=== PATIENT | female | born 1965 | race Caucasian/White ===

== ENCOUNTER 2018-09-28 22:23 | Inpatient (IN) ==
--- NOTE | 2018-09-28 06:58 | General Surg History&Physical ---
Date of Encounter: 09/28/18 Time of Encounter: 06:45 Assessment and Plan (1) Acute appendicitis Current Visit: No Status: Acute The assessment and plan as outlined above was discussed with the patient and/or family members who expressed understanding and agreement. All questions were answered. The patient is transferred from outside emergency room with the diagnosis of acute appendicitis. I personally reviewed the CAT scan films and examined the patient. Her history and physical as well as CAT scan images are consistent with acute appendicitis. We will plan laparoscopic appendectomy. I discussed risks and benefits with her she understands and wishes to proceed. Qualifiers: Acute appendicitis type: with localized peritonitis Appendicitis gangrene presence: unspecified whether gangrene present Appendicitis perforation presence: unspecified whether perforation present Appendicitis abscess presence: without abscess Qualified Code(s): K35.30 - Acute appendicitis with localized peritonitis, without perforation or gangrene History of Present Illness Chief complaint: Abdominal pain HPI: Ms. Balderas is a 53 year old female Who has been ill since Saturday. She developed nausea and vomiting and centralized abdominal pain. This slowly localized to the right lower quadrant. She now has continuous pain in the right lower quadrant as well as pain with motion. She sought evaluation in the emergency department and a CAT scan demonstrated acute appendicitis. She is transferred to [facility] and treated with intravenous antibiotics. On history today she continues to have right lower quadrant pain and pain with motion. I personally reviewed the CAT scan images. Findings are consistent with acute appendicitis. I have recommended laparoscopic appendectomy. She does have shakes chills and fevers. She denies diarrhea. Past Med Surg Social Fam HX - Past Medical History Medical history: no medical history Psychiatric history: no psych history - Past Surgical History Surgical History: hysterectomy - Social History Smoking Status: Never smoker Smokeless Tobacco Status: No Alcohol use: none Drug use: none Medications and Allergies Phenazopyridine HCl [Pyridium] 200 mg PO TIDAC #6 tab 07/26/16 [Rx] Sulfamethoxazole/Trimeth DS [Bactrim DS] 1 each PO BID #20 tablet 07/26/16 [Rx] methylPREDNISolone [Medrol] 4 mg PO TAPER #21 tablet 07/11/18 [Rx] Allergy/AdvReac Type Severity Reaction Status Date / Time No Known Allergies Allergy Verified 07/26/16 09:32 Review of Systems All systems PM: The remainder of the systems were reviewed and are negative General Surgery Exam Initial Vital Signs Temp Pulse Resp BP Pulse Ox 98.6 F 71 16 131/73 97 09/28/18 00:08 09/28/18 00:08 09/28/18 00:08 09/28/18 00:08 09/28/18 00:08 - General physical appearance moderate pain - Neck no masses, no bruits, trachea midline, no lymphadectomy, no venous distension - Respiratory normal expansion, normal respiratory effort, clear to percussion, clear to auscultation - Cardiovascular Cardiovascular exam: Present: RRR, no murmurs/rubs/gallops - Abdomen Abdomen general surgery: Present: bowel sounds present, guarding, rebound Abdominal Tenderness: Present: RLQ - Neurologic Present: CN 2-12 grossly intact, normal coordination, normal sensation - Psychiatric Psychiatric general surgery: Present: appropriate, oriented to person, oriented to place, oriented to time, speech is normal, memory intact Results - Labs All other labs normal. - Imaging CT scan - abdomen: image reviewed (I personally reviewed the CAT scan images. Findings are consistent with acute appendicitis.)
--- NOTE | 2018-09-28 07:26 | Anesthesia Evaluation PreOp ---
Date of Encounter: 09/28/18 Time of Encounter: 07:30 - Past History Planned Operation: Lap Appendectomy Cardiac History: Denies any Significant Hx Pulmonary History: Denies Any Significant HX LEAD MINER BLASTING History: Denies Any Significant HX Other Medical History: Denies Any Significant HX Anesthesia History: No Prior Anesthetic Complications : No (Hysterectomy) Alcohol Use: none Drug use: none Medications and Allergies Phenazopyridine HCl [Pyridium] 200 mg PO TIDAC #6 tab 07/26/16 [Rx] Sulfamethoxazole/Trimeth DS [Bactrim DS] 1 each PO BID #20 tablet 07/26/16 [Rx] methylPREDNISolone [Medrol] 4 mg PO TAPER #21 tablet 07/11/18 [Rx] Allergy/AdvReac Type Severity Reaction Status Date / Time No Known Allergies Allergy Verified 07/26/16 09:32 - Meds/Allergy Pre-op Review Medications Reviewed: Yes Allergies Reviewed: Yes Beta Blockers on Current Med List: No Anesthesia Results - Labs Laboratory Tests 09/27/18 09/27/18 21:22 21:22 Hgb 13.7 Hct 39.5 Plt Count 137 L Sodium 139 Potassium 4.7 BUN 15 Creatinine 1.00 Anesthesia Exam Vital Signs/O2 Sat/Glucose, Most Current Temp Pulse Resp BP Pulse Ox 09/28/18 03:47 98.6 F 76 17 110/71 98 Height: 5'8 Weight: 147 lbs NPO (# of Hours): MN Pain Scale: 1 - HEENT Pupil (Motor): Pupils equal, EOMI Mallampati: II Teeth: Normal Oral Opening: Greater than 3 - LEAD MINER BLASTING LOC: Oriented LEAD MINER BLASTING Motor: Normal RUE, Normal LUE, Normal RLE, Normal LLE, Normal Face LEAD MINER BLASTING Sensory: Normal: RUE, LUE, RLE, LLE, Face - Cardiac Rhythm: Regular Murmur: None JVD: No Carotid Bruit: No - Pulmonary Breath Sounds: bilateral Clear Respiratory Effort: Symmetrical Anesthesia Assess/Plan ASA Score: 1 Level of consciousness: Cooperative Anesthetic Plan: General Autologous Blood: No Monitoring Plan: Standard Monitors Recovery Plan: PACU (Discussed GA, agrees to proceed)
--- NOTE | 2018-09-28 09:13 | Operative Note ---
Date of procedure: 09/28/18 Pre-op diagnosis: Acute appendicitis Post-op diagnosis: other (#1 acute perforated appendicitis #2 intra-abdominal abscess) Procedure: #1 laparoscopic appendectomy #2 drainage of intra-abdominal abscess Anesthesia: JULIAN Surgeon: Jake Pritchett Was there an assistant portfolio manager present: No Estimated blood loss (cc): 25 Specimen: Appendix Condition: stable Disposition: PACU Procedure in Detail: After informed consent the patients taking major operative suite placed supine position given adequate general endotracheal anesthesia. The abdomen is prepped and draped in sterile fashion utilizing ChloraPrep standard draping techniques. Timeout was taken and the patient is identified. I made a vertical midline incision below the umbilicus and dissected down the level of fascia. 2 traction stitches of 0 Vicryl were placed. The abdomen was entered visually and I placed a [place] trocar placed a 5 mm trocar in the left suprapubic area and a 12 mm trocar in the right upper quadrant. The appendix was in the pelvis. I mobilize the cecum in the appendix out of the pelvis. It was noted there is a great deal of periappendiceal inflammation and mesenteric changes. The mesial appendix was very swollen. As I dissected the window between the mesial appendix and the cecum I entered a large abscess cavity. This was completely drained. The condition of the tissues were very poor. The appendix had perforated in its midportion and was essentially in 2 pieces. I divided the mesial appendix and abscess cavity with a vascular load on the laparoscopic stapler. I divided the base the appendix with the gastrointestinal stapler. As I did this, the appendix broke off the cecum. I was very concerned about staple line I investigated the staple line multiple times and took multiple photographs. There was no evidence of leak the staple line appeared to be intact. Because of the presence of abscess, and quality the tissue the staple line I placed a #10 Praful-Coleman drain at the appendectomy site inside the abscess. This was exited through the left lower quadrant. 2-0 silk suture was used to secure the Praful-Coleman drain in place. I irrigated with copious amounts of antibiotic containing solution. There was no evidence of bleeding or staple line leak. All trochars removed. Fascia was closed with 0 Vicryl. Skin was closed with interrupted Vicryl and skin meenakshi. She tolerated the procedure well.
--- NOTE | 2018-09-28 12:05 | Anesthesia Evaluation Post Op ---
Date of Encounter: 09/28/18 Time of Encounter: 11:00 - Vital Signs Vital Signs: Vital Signs/O2 Sat/Glucose, Most Current Temp Pulse Resp BP Pulse Ox 09/28/18 10:18 98.8 F 78 16 101/64 96 09/28/18 09:54 97.6 F 76 16 95/60 96 09/28/18 09:44 83 14 97/56 96 09/28/18 09:34 80 14 86/53 98 09/28/18 09:24 97.8 F 85 20 87/49 95 - Lungs Lungs: Clear Ascult./Percussion - Airway Airway: Non-obstructed - Cardiovascular Regular Rate - Mental Status Mental Status: Alert & Oriented, Answers Appropriately - Pain Pain Scale: 1 - Nausea Vomiting Nausea Vomiting: Not Present - Hydration Hydration: NPO - Discharge PostOp Status: Transfer Patient to floor
[2018-09-28] MEDS: cefOXitin 2,000 MG in Water for inj. (sterile) 20 ML 20 ML IVPB SCH ×2 (15:31→23:40)
[2018-09-28] MEDS: 0.9 % Sodium Chloride 1,000 ML IVC SCH (19:32)
[~2018-09-28 22:23] MED LIST: *HR* HYDROmorphone (PF) 1 MG/ML SYRINGE IVP PRN; *HR* HYDROmorphone (PF) 1 MG/ML SYRINGE ONE; *HR* Midazolam HCl 2 MG/2 ML VIAL ONE; *HR* Morphine 2 MG/ML SYRINGE IVP PRN; *HR* OxyCODONE Immed Rel 5 MG TABLET PO PRN; *HR* OxyCODONE/APAP 10/325 TABLET PO PRN; *HR* PHENYLEPHRINE 1,000 MCG/10 ML SYRINGE IVP ONE; *HR* Propofol 200 MG/20 ML VIAL IVP ONE; *HR* Rocuronium Bromide 50 MG/5 ML VIAL ONE; *HR* Succinylcholine 200 MG/10 ML VIAL IVP ONE; 0.9 % Sodium Chloride 1,000 ML IVC SCH; Acetaminophen IV 1,000 MG/100 ML INFUS..BTL IVPB ONE; Acetaminophen IV 1,000 MG/100 ML INFUS..BTL ONE; Albuterol 2.5 MG/3 ML NEBULIZER IH ONE; CefOXitin 1,000 MG VIAL ONE; Dexamethasone 4 MG/ML VIAL ONE; Famotidine 20 MG/2 ML VIAL IVP ONE; Famotidine 20 MG/2 ML VIAL ONE; Ketorolac 30 MG/ML VIAL ONE; Lacri-Lube 3.5 GM TUBE ONE; Lidocaine -MPF 2% 2 ML VIAL ONE; Lidocaine -MPF 4% 5 ML AMPUL ONE; Metoclopramide 10 MG/2 ML VIAL ONE; Ondansetron 4 MG/2 ML VIAL IVP ONE; Ondansetron 4 MG/2 ML VIAL IVP PRN; SUGAMMADEX SODIUM 500 MG/5 ML VIAL IV ONE; cefOXitin 1,000 MG, 0.9 % Sodium Chloride 1,000 ML IR ONE; cefOXitin 2,000 MG in Water for inj. (sterile) 20 ML 20 ML IVPB SCH
[2018-09-29] MEDS ORDERED: Acetaminophen IV 1,000 MG/100 ML INFUS..BTL IVPB ONE (07:47)
[2018-09-29] MEDS: cefOXitin 2,000 MG in Water for inj. (sterile) 20 ML 20 ML IVPB SCH ×2 (08:49→15:58)
--- NOTE | 2018-09-29 09:23 | General Surgery Progress Note ---
<JemimaKale S - Last Filed: 09/29/18 09:20> Date of Encounter: 09/29/18 Time of Encounter: 08:15 - Assessment and Plan (1) Acute appendicitis Current Visit: No Status: Acute Patient is POD 1 for laparoscopic appendectomy for a perforated appendicitis with drain placement for intra-abdominal abscess WBC 7.7 Wound drainage - 95 > 20 ml today (sanguineous) IV fluid hydration at 75 mls/hr Zofran for nausea Patient is on cefoxitin (day 2) Ordered IV acetaminophen for pain - patient refusing other pain medications Ambulate out of bed today Advanced to full liquid diet today Pathology results - pending Qualifiers: Acute appendicitis type: with localized peritonitis Appendicitis gangrene presence: unspecified whether gangrene present Appendicitis perforation presence: unspecified whether perforation present Appendicitis abscess presence: without abscess Qualified Code(s): K35.30 - Acute appendicitis with localized peritonitis, without perforation or gangrene Subjective Patient reports: no new complaints, feels better, still having pain, pain is less, tolerating liquids well, flatus, no bowel movement Narrative: Patient doing well this morning. She has some abdominal pain around incisions. She has passed flatus. She denies nausea, vomiting, BMs, CP, fevers/chills, SOB. Objective Vital Signs - Last 8 Hours Temp Pulse Resp BP Pulse Ox 09/29/18 06:10 98.2 F 68 15 116/64 98 09/29/18 03:47 97.9 F 52 14 116/61 99 Intake and Output 09/28/18 09/29/18 09/29/18 23:59 07:59 15:59 Intake Total 120 / 120 260 / 260 140 / 140 Output Total 205 / 205 220 / 220 Balance -85 / -85 40 / 40 140 / 140 Intake: IV Fluids 20 / 20 20 / 20 Mefoxin 2,000 MG In Water for 20 / 20 20 / 20 inj. (sterile) 20 ML @ 300 mls/ hr IVPB Q8HR [facility] Rx#:[id number] Oral 120 / 120 240 / 240 120 / 120 Output: Urine 200 / 200 200 / 200 Wound Drainage 5 / 5 20 / 20 LLQ 5 / 5 20 / 20 Other: Meal CLEARS # Bowel Movements 0 0 Weight 67.1 kg Blood Glucose* 112 Patient Weight 09/29/18 23:59 Weight 67.1 kg - General physical appearance well developed, well nourished - Respiratory normal expansion, normal respiratory effort - Cardiovascular Cardiovascular exam: Present: RRR - Abdomen Abdomen: Present: bowel sounds present, soft, tender (appropriately) Additional Comments: MARYSOL drain with ~50 ml sanguineous liquid in bulb - Incision Incision: Present: clean and dry, intact - Integumentary no rash - Psychiatric oriented to time, oriented to person, oriented to place Consult Discharge Plan - Plan Referrals: NONE,PCP [Primary Care Provider] - <Jake Pritchett - Last Filed: 09/29/18 13:32> Date of Encounter: 09/29/18 - Assessment and Plan (1) Acute appendicitis Current Visit: No Status: Acute Qualifiers: Acute appendicitis type: with localized peritonitis Appendicitis gangrene presence: unspecified whether gangrene present Appendicitis perforation presence: unspecified whether perforation present Appendicitis abscess presence: without abscess Qualified Code(s): K35.30 - Acute appendicitis with localized peritonitis, without perforation or gangrene Objective Vital Signs - Last 8 Hours Temp Pulse Resp BP Pulse Ox 09/29/18 10:00 97.7 F 56 16 102/59 97 09/29/18 06:10 98.2 F 68 15 116/64 98 Intake and Output 09/28/18 09/29/18 09/29/18 23:59 07:59 15:59 Intake Total 120 / 120 260 / 260 480 / 480 Output Total 205 / 205 220 / 220 200 / 200 Balance -85 / -85 40 / 40 280 / 280 Intake: IV Fluids 20 / 20 120 / 120 Ofirmev 1,000 mg/100 ml 1,000 100 / 100 mg In 100 ml @ 400 mls/hr IVPB ONCE ONE Rx#:[id number] Mefoxin 2,000 MG In Water for 20 / 20 20 / 20 inj. (sterile) 20 ML @ 300 mls/ hr IVPB Q8HR [facility] Rx#:[id number] Oral 120 / 120 240 / 240 360 / 360 Output: Urine 200 / 200 200 / 200 200 / 200 Wound Drainage 5 / 5 20 / 20 LLQ 5 / 5 20 / 20 Other: Meal Lunch Percent of Meal Consumed 10% # Bowel Movements 0 0 Weight 67.1 kg Blood Glucose* 112 Patient Weight 09/29/18 23:59 Weight 67.1 kg - Attending Attestation I examined this patient and my medical decision-making was reviewed with the Resident Physician. I agree with the documented findings, disposition and treatment plan as described except to the extent set forth below. The patient is seen and evaluated with rest and on morning rounds. She is doing well postoperative day 1 from laparoscopic appendectomy. She had intra- abdominal abscess. Praful-Coleman drain was placed. This has severe sanguinous drainage. No evidence of pus. Jake Pritchett MD FACS
[2018-09-29] MEDS: 0.9 % Sodium Chloride 1,000 ML IVC SCH ×2 (10:19→10:44)
[2018-09-29] MEDS: *HR* Heparin 5,000 UNIT/ML VIAL SQ SCH (18:25)
[2018-09-29] MEDS ORDERED: Ketorolac 30 MG/ML VIAL IVP PRN (21:34)
[2018-09-30] MEDS ORDERED: Acetaminophen 325 MG TABLET PO ONE (00:30)
[2018-09-30] MEDS: cefOXitin 2,000 MG in Water for inj. (sterile) 20 ML 20 ML IVPB SCH ×3 (00:40→16:48)
[2018-09-30] MEDS ORDERED: Acetaminophen 325 MG TABLET PO PRN (02:07)
[2018-09-30] MEDS: *HR* Heparin 5,000 UNIT/ML VIAL SQ SCH ×2 (05:00→16:49)
[2018-09-30 06:24] LABS: Basophils % 0.2 %; Hematocrit 30.7 % (35.3-44.9); Hemoglobin 10.2 g/dL (11.5-15.4); Immature Granulocytes % 0.5 % (0-4); Lymphocytes % 16.8 %; Mean Corpuscular HGB Conc 33.2 g/dL (31.6-35.5); Mean Corpuscular Hemoglobin 28.9 pg (28.0-33.3); Mean Platelet Volume 10.7 fL (9.4-12.4); Monocytes # 0.5 K/mcL (0.0-1.3); Monocytes % 9.5 %; Neutrophils # 4.2 K/mcL (1.6-8.9); Platelet Count 103 K/mcL (140-400); Red Blood Count 3.53 M/mcL (3.82-4.97); Red Cell Distribution Width 12.2 % (11.5-14.5)
[2018-09-30 06:45] LABS: BUN/Creatinine Ratio 21 (6-26); Blood Urea Nitrogen 17 mg/dL (6-20); Calcium 8.4 mg/dL (8.6-10.3); Carbon Dioxide 22 mEq/L (23-29); Chloride 109 mEq/L (98-107); Glucose 92 mg/dL (70-105); Osmolality,Calculated 291 (280-300); Sodium 140 mEq/L (136-145); eGFR For Non-African Americans > 60 (> 60)
[2018-09-30] MEDS ORDERED: Acetaminophen IV 500 MG/50 ML INFUS..BTL IVPB ONE (07:32)
[2018-09-30] MEDS: 0.9 % Sodium Chloride 1,000 ML IVC SCH ×2 (07:45→11:17)
[2018-09-30] MEDS ORDERED: Acetaminophen IV 1,000 MG/100 ML INFUS..BTL IVPB ONE (09:45)
[2018-09-30] MEDS ORDERED: Ibuprofen 800 MG TABLET PO PRN (09:50)
[2018-09-30] MEDS ORDERED: Ibuprofen 200 MG TABLET PO PRN (10:30)
[2018-09-30] MEDS ORDERED: Ibuprofen 400 MG TABLET PO PRN (17:05)
--- NOTE | 2018-09-30 17:10 | General Surgery Progress Note ---
<CristopherDanelle Nicho - Last Filed: 09/30/18 17:07> Date of Encounter: 09/30/18 Time of Encounter: 17:07 - Assessment and Plan (1) Acute appendicitis Current Visit: Yes Status: Acute POD #2 Lap appy with MARYSOL drain placement and evacuation of abscess. Pt states dicomfort ins improved. she has difficulty taking large pills and requests smaller dosage of ibuprofen more often. Tolerating diet. No BM P{magalie: continue supportive care and discomfort management while awaiting full return about function soft diet ambulate TID G.I. and DVT prophylaxis continue IV antibiotics DC planning in the next 24 to 48 hours pending clinical course Qualifiers: Acute appendicitis type: with localized peritonitis Appendicitis gangrene presence: without gangrene Appendicitis perforation presence: with perforation Appendicitis abscess presence: with abscess Qualified Code(s): K35.33 - Acute appendicitis with perforation and localized peritonitis, with abscess Subjective Patient reports: no new complaints, feels better, tolerating liquids well, voiding w/o difficulty, flatus, no bowel movement, afebrile Objective Vital Signs - Last 8 Hours Temp Pulse Resp BP Pulse Ox 09/30/18 14:47 98.7 F 67 16 104/57 98 09/30/18 09:53 98.0 F 65 15 120/70 98 Intake and Output 09/30/18 09/30/18 09/30/18 07:59 15:59 23:59 Intake Total 20 / 20 360 / 360 Output Total 220 / 220 355 / 355 135 / 135 Balance -200 / -200 5 / 5 -135 / -135 Intake: IV Fluids 20 / 20 120 / 120 Ofirmev 1,000 mg/100 ml 1,000 100 / 100 mg In 100 ml @ 400 mls/hr IVPB ONCE ONE Rx#:[id number] Mefoxin 2,000 MG In Water for 20 / 20 20 / 20 inj. (sterile) 20 ML @ 300 mls/ hr IVPB Q8HR [facility] Rx#:[id number] Oral 240 / 240 Output: Urine 150 / 150 355 / 355 100 / 100 Wound Drainage 70 / 70 0 / 0 35 / 35 LLQ 70 / 70 0 / 0 35 / 35 Other: # Bowel Movements 0 Weight 68.2 kg Patient Weight 09/30/18 23:59 Weight 68.2 kg - General physical appearance no distress, moderate pain - ENT normal nares, normal mucosa - Neck Neck exam: trachea midline - Respiratory normal expansion, normal respiratory effort, clear to auscultation - Cardiovascular Cardiovascular exam: Present: RRR - Abdomen Abdomen: Present: bowel sounds present, soft, tender, wound (MARYSOL with SS drainage) Hernia: none - Integumentary no rash - Neurologic CN 2-12 grossly intact, normal coordination, normal sensation - Musculoskeletal normal gait, normal posture - Psychiatric oriented to time, oriented to person, oriented to place, speech is normal, memory intact - Labs 09/30/18 05:49 09/30/18 05:49 Diabetes panel 09/30/18 Range/Units 05:49 Sodium 140 (136-145) mEq/L Potassium 4.0 (3.5-5.1) mEq/L Chloride 109 H (98-107) mEq/L Carbon Dioxide 22 L (23-29) mEq/L BUN 17 (6-20) mg/dL Creatinine 0.81 (0.60-1.20) mg/dL Glucose 92 (70-105) mg/dL Calcium 8.4 L (8.6-10.3) mg/dL Calcium panel 09/30/18 Range/Units 05:49 Calcium 8.4 L (8.6-10.3) mg/dL Pituitary panel 09/30/18 Range/Units 05:49 Sodium 140 (136-145) mEq/L Potassium 4.0 (3.5-5.1) mEq/L Chloride 109 H (98-107) mEq/L Carbon Dioxide 22 L (23-29) mEq/L BUN 17 (6-20) mg/dL Creatinine 0.81 (0.60-1.20) mg/dL Glucose 92 (70-105) mg/dL Calcium 8.4 L (8.6-10.3) mg/dL Adrenal panel 09/30/18 Range/Units 05:49 Sodium 140 (136-145) mEq/L Potassium 4.0 (3.5-5.1) mEq/L Chloride 109 H (98-107) mEq/L Carbon Dioxide 22 L (23-29) mEq/L BUN 17 (6-20) mg/dL Creatinine 0.81 (0.60-1.20) mg/dL Glucose 92 (70-105) mg/dL Calcium 8.4 L (8.6-10.3) mg/dL Consult Discharge Plan - Plan Referrals: NONE,PCP [Primary Care Provider] - <Jake Pritchett - Last Filed: 10/01/18 17:23> Date of Encounter: 09/30/18 - Assessment and Plan (1) Acute appendicitis Current Visit: Yes Status: Acute Qualifiers: Acute appendicitis type: with localized peritonitis Appendicitis gangrene presence: without gangrene Appendicitis perforation presence: with perforation Appendicitis abscess presence: with abscess Qualified Code(s): K35.33 - Acute appendicitis with perforation and localized peritonitis, with abscess Objective Vital Signs - Last 8 Hours Temp Pulse Resp BP Pulse Ox 10/01/18 15:36 98.7 F 65 16 103/67 97 10/01/18 11:25 98.5 F 72 16 104/68 97 Intake and Output 10/01/18 10/01/18 10/01/18 07:59 15:59 23:59 Intake Total 20 20 20 / 20 Output Total 120 / 120 Balance -100 / -100 20 / 20 Intake: IV Fluids 20 / 20 20 / 20 Mefoxin 2,000 MG In Water for 20 20 20 / 20 inj. (sterile) 20 ML @ 300 mls/ hr IVPB Q8HR [facility] Rx#:[id number] Oral 0 / 0 0 / 0 Output: Urine 100 / 100 Wound Drainage / 20 LLQ 20 / 20 Other: Meal Lunch Percent of Meal Consumed 30% # Bowel Movements 0 Weight 68.9 kg Patient Weight 10/01/18 23:59 Weight 68.9 kg - Labs 10/01/18 06:33 09/30/18 05:49 - Attending Attestation I examined this patient and my medical decision-making was reviewed with the Resident Physician. I agree with the documented findings, disposition and treatment plan as described except to the extent set forth below. The patient is seen and evaluated on morning rounds with resident. She is doing quite well. We will advance her diet. Continue IV antibiotics. Jake Pritchett MD FACS
[2018-10-01] MEDS: cefOXitin 2,000 MG in Water for inj. (sterile) 20 ML 20 ML IVPB SCH ×3 (01:05→18:04)
[2018-10-01] MEDS: *HR* Heparin 5,000 UNIT/ML VIAL SQ SCH ×2 (05:49→18:05)
[2018-10-01 07:08] LABS: Hematocrit 31.6 % (35.3-44.9); Hemoglobin 10.7 g/dL (11.5-15.4); Mean Corpuscular HGB Conc 33.9 g/dL (31.6-35.5); Mean Corpuscular Hemoglobin 28.6 pg (28.0-33.3); Mean Corpuscular Volume 84.5 fL (83.0-100.0); Mean Platelet Volume 10.1 fL (9.4-12.4); Platelet Count 122 K/mcL (140-400); Red Blood Count 3.74 M/mcL (3.82-4.97); Red Cell Distribution Width 11.9 % (11.5-14.5)
[2018-10-01] MEDS: Pantoprazole 40 MG VIAL IVP SCH (09:18)
--- NOTE | 2018-10-01 10:50 | General Surgery Progress Note ---
<Kale Onofre S - Last Filed: 10/01/18 10:48> Date of Encounter: 10/01/18 Time of Encounter: 07:15 - Assessment and Plan (1) Acute appendicitis Current Visit: Yes Status: Acute Patient is POD 3 for laparoscopic appendectomy for a perforated appendicitis with drain placement for intra-abdominal abscess WBC 4.7 Wound drainage - 105 > 20 ml today (serosanguineous) Zofran for nausea Protonix for GI prophylaxis Patient is on cefoxitin (day 4) Acetaminophen and ibuprophen for pain Ambulate out of bed today On soft diet Please make sure patient is using incentive spirometer Pathology results - acute appendicitis with marina-appendicitis Patient had temp of 99.9 overnight, on Abx If patient remains afebrile through tomorrow, may plan for discharge Qualifiers: Acute appendicitis type: with localized peritonitis Appendicitis gangrene presence: without gangrene Appendicitis perforation presence: with perforation Appendicitis abscess presence: with abscess Qualified Code(s): K35.33 - Acute appendicitis with perforation and localized peritonitis, with abscess Subjective Patient reports: no new complaints, feels better, pain is less, tolerating a regular diet, flatus, no bowel movement Narrative: Patient is POD 3 for lap appy with perforation and drain for abscess. Patient had a Tmax of 99.9 overnight. She is doing well this AM. She denies nausea, vomiting, CP, SOB, chills. No BMs yet, but she is passing flatus. She is hamilton erating her diet this AM. Objective Vital Signs - Last 8 Hours Temp Pulse Resp BP Pulse Ox 10/01/18 06:47 98.5 F 73 16 110/70 97 10/01/18 04:17 99.4 F 77 15 118/67 96 Intake and Output 09/30/18 10/01/18 10/01/18 23:59 07:59 15:59 Intake Total 860 / 860 20 / 20 20 / 20 Output Total 685 / 685 120 / 120 Balance 175 / 175 -100 / -100 20 / 20 Intake: IV Fluids 20 / 20 20 / 20 20 / 20 Mefoxin 2,000 MG In Water for 20 / 20 20 / 20 20 / 20 inj. (sterile) 20 ML @ 300 mls/ hr IVPB Q8HR [facility] Rx#:[id number] Oral 840 / 840 0 / 0 0 / 0 Output: Urine 650 / 650 100 / 100 Wound Drainage 35 / 35 20 / 20 LLQ 35 / 35 20 / 20 Other: Meal Breakfast Percent of Meal Consumed 0% # Bowel Movements 0 0 Weight 68.9 kg Patient Weight 10/01/18 23:59 Weight 68.9 kg - General physical appearance well developed, well nourished - Respiratory normal expansion, normal respiratory effort - Cardiovascular Cardiovascular exam: Present: RRR - Abdomen Abdomen: Present: bowel sounds present, soft, non tender Additional Comments: MARYSOL drain has 20 ml serosanguineous liquid in bulb - Incision Incision: Present: clean and dry, intact - Integumentary no rash - Musculoskeletal normal gait, normal posture - Psychiatric oriented to time, oriented to person, oriented to place - Labs 10/01/18 06:33 09/30/18 05:49 Consult Discharge Plan - Plan Referrals: NONE,PCP [Primary Care Provider] - <Jake Pritchett - Last Filed: 10/01/18 17:16> Date of Encounter: 10/01/18 - Assessment and Plan (1) Acute appendicitis Current Visit: Yes Status: Acute Qualifiers: Acute appendicitis type: with localized peritonitis Appendicitis gangrene presence: without gangrene Appendicitis perforation presence: with perforation Appendicitis abscess presence: with abscess Qualified Code(s): K35.33 - Acute appendicitis with perforation and localized peritonitis, with abscess Objective Vital Signs - Last 8 Hours Temp Pulse Resp BP Pulse Ox 10/01/18 15:36 98.7 F 65 16 103/67 97 10/01/18 11:25 98.5 F 72 16 104/68 97 Intake and Output 10/01/18 10/01/18 10/01/18 07:59 15:59 23:59 Intake Total 20 / 20 20 / 20 Output Total 120 / 120 Balance -100 / -100 20 / 20 Intake: IV Fluids 20 / 20 20 / 20 Mefoxin 2,000 MG In Water for 20 / 20 20 / 20 inj. (sterile) 20 ML @ 300 mls/ hr IVPB Q8HR [facility] Rx#:[id number] Oral 0 / 0 0 / 0 Output: Urine 100 / 100 Wound Drainage 20 / 20 LLQ 20 / 20 Other: Meal Lunch Percent of Meal Consumed 30% # Bowel Movements 0 Weight 68.9 kg Patient Weight 10/01/18 23:59 Weight 68.9 kg - Labs 10/01/18 06:33 09/30/18 05:49 - Attending Attestation I examined this patient and my medical decision-making was reviewed with the Resident Physician. I agree with the documented findings, disposition and treatment plan as described except to the extent set forth below. The patient is seen and evaluated on morning rounds with resident. She is tolerating regular diet. Temperature is 99.9 last evening. We will hold her for another day of IV antibiotics Jake Pritchett MD FACS
[2018-10-02] MEDS: cefOXitin 2,000 MG in Water for inj. (sterile) 20 ML 20 ML IVPB SCH ×2 (00:10→08:04)
[2018-10-02] MEDS: *HR* Heparin 5,000 UNIT/ML VIAL SQ SCH (06:15)
[2018-10-02 07:03] VITALS: BP 109/69
[2018-10-02] MEDS: Pantoprazole 40 MG VIAL IVP SCH (08:05)
--- NOTE | 2018-10-02 08:32 | Discharge Summary ---
<Danelle Nicholas - Last Filed: 10/02/18 08:30> Date of Encounter: 10/02/18 Time of Encounter: 08:32 - Discharge Diagnosis (1) Acute appendicitis Priority: Primary Status: Acute Qualifiers: Acute appendicitis type: with localized peritonitis Appendicitis gangrene presence: without gangrene Appendicitis perforation presence: with perforation Appendicitis abscess presence: with abscess Qualified Code(s): K35.33 - Acute appendicitis with perforation and localized peritonitis, with abscess General Surgery Exam Initial Vital Signs Temp Pulse Resp BP Pulse Ox 98.6 F 71 16 131/73 97 09/28/18 00:08 09/28/18 00:08 09/28/18 00:08 09/28/18 00:08 09/28/18 00:08 Vital Signs Temp Pulse Resp BP Pulse Ox 10/02/18 06:58 98.5 F 68 14 109/69 97 10/02/18 04:21 98.8 F 77 16 120/71 98 10/02/18 00:18 99.6 F 80 15 119/75 97 10/01/18 21:05 94 10/01/18 20:38 98.5 F 67 16 114/67 94 10/01/18 15:36 98.7 F 65 16 103/67 97 10/01/18 11:25 98.5 F 72 16 104/68 97 Intake and Output 10/01/18 10/02/18 10/02/18 23:59 07:59 15:59 Intake Total 500 / 500 50 / 50 20 / 20 Output Total 112 / 112 205 / 205 Balance 388 / 388 -155 / -155 20 / 20 Intake: IV Fluids 20 / 20 20 / 20 20 / 20 Mefoxin 2,000 MG In Water for 20 / 20 20 / 20 20 / 20 inj. (sterile) 20 ML @ 300 mls/ hr IVPB Q8HR [facility] Rx#:[id number] Oral 480 / 480 30 / 30 Output: Urine 100 / 100 200 / 200 Wound Drainage LLQ Other: Meal Dinner Percent of Meal Consumed 30% # Voids 1 VITAL SIGNS: Reviewed. See [facility] GENERAL: In no apparent distress. HEENT: Normocephalic, atraumatic, pupils are equal and reactive, extraocular motions intact, oropharynx is pink and moist, there is no neck adenopathy or JVD noted. CHEST/RESPIRATORY: The thorax is free from signs of trauma. Lung sounds: clear to auscultation, normal respiratory effort CARDIAC: Regular rate and rhythm. Normal S1 and S2, without murmurs, gallops, or rubs. VASCULAR: No Edema. 2+ peripheral pulses. ABDOMEN: soft, expected postoperative tenderness, active bowel sounds INCISION: Surgical incision is clean, dry, and intact. There are no signs of cellulitis or infection noted. MUSCULOSKELETAL: Good range of motion of all major joints. Extremities without clubbing, cyanosis or edema. NEUROLOGIC EXAM: Alert and oriented x 3. Speech normal. Follows commands. PSYCHIATRIC: Mood normal. SKIN: No rash or lesions. - Hospital Course Hospital course: Ms. Balderas is a 53 year old female presented on 09/28/2018 with right lower quadrant pain. Her exam and imaging were consistent with acute appendicitis. She was taken to the operating room where she underwent a laparoscopic appendectomy and drainage of an intra-abdominal abscess, drain placement for acute perforated appendicitis on 09/28/[address] Pritchett. Her final pathology noted acute appendicitis with periappendicitis. Her MARYSOL drain is discontinued on 10/02/2018. She has been supported with IV antibiotics during her unremarkable hospital stay. She is ambulating and voiding without difficulty, tolerating a diet without nausea or vomiting, vital signs are stable, afebrile, and her abdominal discomfort is controlled without the elective use of medications. We will begin discharge planning to home with a follow-up in the office in approximately one week. - Time Spent with Patient Total time spent providing and/or coordinating discharge services: - Discharge Medications Prescriptions: Ciprofloxacin [Cipro] 500 mg PO BID 7 Days #14 tablet metroNIDAZOLE [Flagyl] 500 mg PO TID 7 Days #21 tablet Home Medications: Ciprofloxacin [Cipro] 500 mg PO BID 7 Days #14 tablet 10/02/18 [Rx] metroNIDAZOLE [Flagyl] 500 mg PO TID 7 Days #21 tablet 10/02/18 [Rx] Allergies/Adverse Reactions: Allergy/AdvReac Type Severity Reaction Status Date / Time No Known Allergies Allergy Verified 07/26/16 09:32 Date of admission: 09/30/18 10:52 Primary care physician: PCP NONE Consults: 09/30/18 09:58 Consult for Pharmacy Education [CONS] Routine Reason for Consult: Dr. Pritchett requests for pain medication educations Call Completed: Yes Discharging clinician: Jake Pritchett Anticipated date of discharge: 10/02/18 - Patient Status Disposition: Home, Self-Care Condition: Good Functional capacity at discharge: independent ambulation Overall status at discharge: patient is progressing back to baseline - Discharge Instructions Instructions: Laparoscopic Appendectomy (DC) Follow Up With: Danelle Nicholas REVISING CLERK [Advanced Practice Nurse] - 10/14/18 2:15 pm Additional Instructions: General Surgical Discharge Instructions 1. No pushing, pulling, or lifting greater than 15 lbs for 2-4 weeks (depending upon procedure). 2. You may shower beginning today, but no tub baths, soaking, or swimming for 2 weeks. 3. You may resume driving when you are off narcotics and are safe to react in a car. 4. Take ibuprofen every 4 hours for discomfort. And alternate this with Tylenol if needed. 5. Take stool softeners (Colace) or a water based laxative (Miralax) while taking narcotics. You may hold for loose stools. 6. Report any fevers greater than 100.5F, increase abdominal discomfort, drainage that looks like pus, increased redness or pain at the surgical site, or any vomiting. 7. Report any pain in the calves, shortness of breath, or rapid heartbeat. 8. Follow-up in the office as directed. 9. If you were prescribed antibiotics, do not stop them without talking to your provider. - Diet and Activity Activity: increase activity as tolerated Diet: advance to your usual diet <Jake Pritchett - Last Filed: 10/03/18 12:37> Date of Encounter: 10/02/18 - Discharge Diagnosis (1) Acute appendicitis Status: Acute Qualifiers: Acute appendicitis type: with localized peritonitis Appendicitis gangrene presence: without gangrene Appendicitis perforation presence: with perforation Appendicitis abscess presence: with abscess Qualified Code(s): K35.33 - Acute appendicitis with perforation and localized peritonitis, with abscess General Surgery Exam Initial Vital Signs Temp Pulse Resp BP Pulse Ox 98.6 F 71 16 131/73 97 09/28/18 00:08 09/28/18 00:08 09/28/18 00:08 09/28/18 00:08 09/28/18 00:08 - Hospital Course Hospital course: Ms. Balderas is a 53 year old female - Time Spent with Patient Total time spent providing and/or coordinating discharge services: Date of admission: 09/30/18 10:52 Primary care physician: PCP NONE Consults: 09/30/18 09:58 Consult for Pharmacy Education [CONS] Routine Reason for Consult: Dr. Pritchett requests for pain medication educations Call Completed: Yes - Attending Attestation I have personally performed a face to face evaluation on this patient. I have reviewed and agree with the care plan. History and Exam by me shows: The patient is seen and evaluated with the clinical nurse practitioner. She is ready for discharge. She will be placed on ciprofloxacin and Flagyl and I will see her back in 1 week. Jake Pritchett MD FACS
== END 2018-10-02 10:37 | disposition home or self-care (01) | DRG 233 ==
LOC: 3ANU
PROVIDERS: ADMIT Surgery; ATTEND Surgery